=== PATIENT | female | born 1970 | race Caucasian/White ===

== ENCOUNTER 2017-02-19 08:11 | Outpatient (CLI) | payer OTHER | END 2017-02-19 08:18 | disposition home or self-care (01) | LOC: MAMO-SONO 08:11 | DX: Z12.31 Encounter for screening mammogram for malignant neoplasm of breast (principal); N84.0 Polyp of corpus uteri; N60.11 Diffuse cystic mastopathy of right breast; N60.12 Diffuse cystic mastopathy of left breast ==

== ENCOUNTER 2022-03-13 06:28 | Day surgery (SDC) | payer OTHER ==
[~2022-03-13 06:28] MED LIST: ATIVAN0.5 M1 PO; CLONAZEP PO; EFFEXOR PO; FLEXERIL PO; [UNRECOGNIZED DRUG - OTHER] PO
== END 2022-03-13 16:20 | disposition home or self-care (01) ==
LOC: CIR.AMB 06:28
PROVIDERS: ATTEND Obstetrics & Gynecology
DX: N92.0 Excessive and frequent menstruation with regular cycle (principal); D25.0 Submucous leiomyoma of uterus; N84.1 Polyp of cervix uteri; Z91.018 Allergy to other foods; Z88.8 Allergy status to other drugs, medicaments and biological substances; Z20.822 Contact with and (suspected) exposure to COVID-19